=== PATIENT | male | born 1970 | race Two or more races ===

== ENCOUNTER 2024-07-13 09:19 | Outpatient (AMB) | payer BC, SELFPAY ==
[2024-07-13 09:29] VITALS: BP 162/93; PULSE 68; RESP 17; TEMP 36.2; O2SAT 95; BMI 38.9
--- NOTE | 2024-07-13 09:29 | ACNOTE_ITS ---
Vital Signs 07/13/24 09:29 Height 1.63 m Height Method Stated Weight 103.476 kg Weight Measurement Method Standing Scale BMI 38.9 BP 162/93 H Blood Pressure Source Automatic Cuff Blood Pressure Location Left Upper Arm Position Sitting Respiration 17 Pulse 68 Pulse Source Monitor Temp 97.1 F Temp Source Oral Pulse Oximetry (%) 95 Oxygen Delivery Method Room Air Allergies/Meds Allergies & Medications Allergies No Known Allergies Allergy (Verified 07/13/24 09:31) Medication Reconciliation sacubitril 24 mg-valsartan 26 mg tablet (Entresto) 1 tab PO BID 30 days #60 tabs 01/02/23 [Rx Confirmed 07/13/24] aspirin 81 mg tablet,delayed release 81 mg PO QDAY 03/19/23 [History Confirmed 07/13/24] atorvastatin 40 mg tablet 40 mg PO QDAY 03/19/23 [History Confirmed 07/13/24] carvedilol 6.25 mg tablet 6.25 mg PO BID 03/19/23 [History Confirmed 07/13/24] sacubitril 49 mg-valsartan 51 mg tablet (Entresto) 1 tab PO BID 03/19/23 [History Confirmed 07/13/24] methylprednisolone 4 mg tablets in a dose pack See Rx Instructions PO PER PKG DIR #21 tabs 05/07/23 [Rx Confirmed 07/13/24] apixaban 5 mg tablet (Eliquis) 5 mg PO BID 1 month #60 tabs 10/01/23 [Rx Confirmed 07/13/24] hydrochlorothiazide 50 mg tablet 50 mg PO QDAY HTN #30 tabs 10/20/23 [Rx Confirmed 07/13/24] apixaban 5 mg tablet (Eliquis) 5 mg PO BID 30 days #60 tabs 10/22/23 [Rx Confirmed 07/13/24] buspirone 5 mg tablet 5 mg PO TID #90 tabs 10/27/23 [Rx Confirmed 07/13/24] MA Intake Visit Data Collection New Patient or Established: Established Patient (seen at [facility] within 3 years) Seen by Clinical Staff ONLY (RN/LUIS ALFREDO): No Pain Present Currently: No Pain scale:: 0 Pain Scale Used: EncarnacionLeatha/Numerical Optimization Manager Required: No PCP or OBGYN visit in last 3 months: No Hx Now: No Do You Feel Safe at Home: Yes Authorities Contacted: N/A Smoking Status Smoking Status: Former smoker Immunization / Flu Flu Vaccine in the Last 12 Months: No Flu Vaccine Exclusion Criteria: No Exclusion Criteria Past Medical History Past Medical History NEUROLOGIC: Negative Seizures CARDIAC: Negative Congestive Heart Failure RESPIRATORY: Negative Chronic Obstructive Pulmonary Disease (COPD) GASTROINTESTINAL: Positive Hiatal Hernia GENITOURINARY: Negative Renal Disease ENDOCRINE: Negative Diabetes Mellitus Type 1 or Diabetes Mellitus Type 2 OTHER HISTORY: Negative Blood Transfusions or Anesthesia Reactions Family History FAMILY HISTORY: Positive Family Cardiac Disorders Social History SMOKING STATUS: Smoking status: Former smoker LIVES WITH: Lives With: Spouse Patient Portal Questionaires PHQ-9 PHQ-2 Over the last 2 weeks, how often have you been bothered by any of the following problems? 1. Little interest or pleasure in doing things: not at all PHQ-9 8. Moving or speaking so slowly that other people could have noticed? - Or the opposite - being so fidgety or restless that you have been moving around a lot more than usual: not at all Source: Developed by Drs. Winston Orr, Cindy Alcocer, Marc Mcnair and colleagues, with an educational raymon from [employer]. Social History Living Situation History Housing Other:: see note Tobacco History Smoking Status: Former smoker Domestic Abuse History Do You Feel Safe at Home: Yes Review of Systems Report any current symptoms Only answer those that you have currently: Past Medical History Past Medical History Have you ever been diagnosed with any of the following: Neurological Problems Seizures: No Cardiology Problems Congestive Heart Failure: No Respiratory Problems Chronic Obstructive Pulmonary Disease (COPD): No Stomache/Intestinal Problems Hiatal Hernia: Yes Genital/Urinary Problems Renal Disease: No Endocrine Problems Diabetes Mellitus Type 1: No Diabetes Mellitus Type 2: No Other Problems Blood Transfusions: No Anesthesia Reactions: No History of Present Illness HPI Narrative A 54-year-old male patient with past medical hx of CHF, HTN, HLD, Afib on eliquis presented to e office due to high blood pressure, His BP was well controlled with SBPs below 140s, Since yesterday he started to notice that his BP being in 160s and feel sick and lightheadedness associated with nasal congestion epigastric discomfort. On questioning he denied any cough, SOB, orthopnea or PND. denied any N/V/ or diarrhea. Denied any fever. Last visit to his cardiologiest was 7 months. He reported that his daughter has nasal congestions and cough too. Review of Systems Review of Systems Systems Reviewed: All systems reviewed, normal except as documented Objective/Exam Narrative Physical exam: GEN: AOx3, able to speak full sentences HEENT: NC/AC, PERRLA, oral mucosa moist, neck supple CVS: RRR, S1-S2 present, no murmurs appreciated RESP: CTAB GI: soft,non distended, non tender, NBS MSK: able to move all 4 limbs, no lower extremity edema SKIN: scaly patches on his lower extremities with fine scales. ACTUARY CLERK: CN II-XII and Sensation grossly intact. Assessment & Plan Diagnosis / Problem List (1) HFrEF (heart failure with reduced ejection fraction): Status: Acute Plan: Follow up with your university archivist as recommended (2) Nasal congestion: Status: Acute Assessment & Plan: less likely to bacterial infection, Patient denied any SOB or exertional dyspnea Plan: NyQuil, HS as needed (3) HTN (hypertension): Status: Acute Qualifiers: Hypertension type: primary hypertension Qualified Code(s): I10 - Essential (primary) hypertension Assessment & Plan: Patient was noticed to have BP of 162/93, Patient reported that he has been taking Dayquil. He is using meds regularly Plan: - Change diquil to nyqui HS - Continue to monitor your BP daily - If blood Pressure next week still high we may increase his Coreg for a short d uration until he sees his university archivist Additional Assessment Internal Medicine Attending Note: Case discussed with and agree with note and management plan of Resident Physician as per Resident's Note above. Issues of concern for present visit are as follows: Follow-up visit. Patient has symptoms of URI, suspect viral. Used OTC medication likely containing phenylephrine to raise blood pressure. Suspect this is potential cause of blood pressure elevation. We will have him discontinue any [id number] medication containing phenylephrine. If blood pressure remains elevated, will need adjustment in blood pressure medication regimen. Congestive heart failure appears stable at this time. Yeyo Thompson MD Physician Billing Established Patient Established Patient: E/M Level 3-CPT 51196 Office Procedures [facility] Level of Care Nursing/Assessment Patient Status: Established Patient Nursing Assessment/Reassessment: Medication Reconciliation, Update PMH in EMR and Vital Signs Coordination of Care: Complex Care and Chronic Disease 1-5, Consent,records obtained, informed consent, Education Simp Pt/Fam and Staff clarify orders Established Patient Charge Established Patient Point Assignment: 85 Established Patient Point Charge: EP Level 3 (80-115)
== END 2024-07-13 10:19 | disposition home or self-care (01) ==
LOC: HODAHC 09:19
PROVIDERS: PCP Student in an Organized Health Care Education/Training Program; Referring Provider Student in an Organized Health Care Education/Training Program; Supervising Provider Student in an Organized Health Care Education/Training Program; Visit Provider Student in an Organized Health Care Education/Training Program
DX: I11.0 Hypertensive heart disease with heart failure (principal); I50.20 Unspecified systolic (congestive) heart failure; I48.91 Unspecified atrial fibrillation; Z79.01 Long term (current) use of anticoagulants; R09.81 Nasal congestion
CPT/HCPCS: 99213; G0463

== ENCOUNTER 2024-07-23 13:57 | Outpatient (AMB) | payer BC, SELFPAY ==
[2024-07-23 14:06] VITALS: BP 159/90; PULSE 72; RESP 17; TEMP 36.9; O2SAT 94; BMI 40.4
--- NOTE | 2024-07-23 14:06 | PD.RESCLINIC ---
Vital Signs 07/23/24 14:06 Height 1.63 m Height Method Stated Weight 107.558 kg Weight Measurement Method Standing Scale BMI 40.4 BP 159/90 H Blood Pressure Source Automatic Cuff Blood Pressure Location Left Upper Arm Position Sitting Respiration 17 Pulse 72 Pulse Source Monitor Temp 98.5 F Temp Source Temporal Artery Scan Pulse Oximetry (%) 94 L Oxygen Delivery Method Room Air Allergies/Meds Allergies & Medications Allergies No Known Allergies Allergy (Verified 07/23/24 14:07) Medication Reconciliation sacubitril 24 mg-valsartan 26 mg tablet (Entresto) 1 tab PO BID 30 days #60 tabs 01/02/23 [Rx Confirmed 07/23/24] aspirin 81 mg tablet,delayed release 81 mg PO QDAY 03/19/23 [History Confirmed 07/23/24] atorvastatin 40 mg tablet 40 mg PO QDAY 03/19/23 [History Confirmed 07/23/24] sacubitril 49 mg-valsartan 51 mg tablet (Entresto) 1 tab PO BID 03/19/23 [History Confirmed 07/23/24] methylprednisolone 4 mg tablets in a dose pack See Rx Instructions PO PER PKG DIR #21 tabs 05/07/23 [Rx Confirmed 07/23/24] apixaban 5 mg tablet (Eliquis) 5 mg PO BID 1 month #60 tabs 10/01/23 [Rx Confirmed 07/23/24] hydrochlorothiazide 50 mg tablet 50 mg PO QDAY HTN #30 tabs 10/20/23 [Rx Confirmed 07/23/24] apixaban 5 mg tablet (Eliquis) 5 mg PO BID 30 days #60 tabs 10/22/23 [Rx Confirmed 07/23/24] buspirone 5 mg tablet 5 mg PO TID #90 tabs 10/27/23 [Rx Confirmed 07/23/24] carvedilol 12.5 mg tablet (Coreg) 12.5 mg PO Q12H #90 tabs 07/23/24 [Rx] MA Intake Visit Data Collection New Patient or Established: Established Patient (seen at [facility] within 3 years) Seen by Clinical Staff ONLY (RN/MA): No Pain Present Currently: No Pain Scale Used: EncarnacionLeatha/Numerical Diamond Driller Helper Required: No PCP or OBGYN visit in last 3 months: Yes Do You Feel Safe at Home: Yes Authorities Contacted: N/A Smoking Status Smoking Status: Former smoker Immunization / Flu Flu Vaccine in the Last 12 Months: No Flu Vaccine Exclusion Criteria: No Exclusion Criteria Past Medical History Past Medical History NEUROLOGIC: Negative Seizures CARDIAC: Negative Congestive Heart Failure RESPIRATORY: Negative Chronic Obstructive Pulmonary Disease (COPD) GASTROINTESTINAL: Positive Hiatal Hernia GENITOURINARY: Negative Renal Disease ENDOCRINE: Negative Diabetes Mellitus Type 1 or Diabetes Mellitus Type 2 OTHER HISTORY: Negative Blood Transfusions or Anesthesia Reactions Family History FAMILY HISTORY: Positive Family Cardiac Disorders Social History SMOKING STATUS: Smoking status: Former smoker LIVES WITH: Lives With: Spouse Patient Portal Questionaires PHQ-9 PHQ-2 Over the last 2 weeks, how often have you been bothered by any of the following problems? 1. Little interest or pleasure in doing things: not at all PHQ-9 8. Moving or speaking so slowly that other people could have noticed? - Or the opposite - being so fidgety or restless that you have been moving around a lot more than usual: not at all Source: Developed by Drs. Winston Orr, Cindy Alcocer, Marc Mcnair and colleagues, with an educational raymon from [employer]. Social History Living Situation History Housing Other:: see note Tobacco History Smoking Status: Former smoker Domestic Abuse History Do You Feel Safe at Home: Yes Review of Systems Report any current symptoms Only answer those that you have currently: Past Medical History Past Medical History Have you ever been diagnosed with any of the following: Neurological Problems Seizures: No Cardiology Problems Congestive Heart Failure: No Respiratory Problems Chronic Obstructive Pulmonary Disease (COPD): No Stomache/Intestinal Problems Hiatal Hernia: Yes Genital/Urinary Problems Renal Disease: No Endocrine Problems Diabetes Mellitus Type 1: No Diabetes Mellitus Type 2: No Other Problems Blood Transfusions: No Anesthesia Reactions: No History of Present Illness HPI Narrative A 54-year-old male patient with past medical hx of CHF, HTN, HLD, Afib on eliqu[employer] .Presented for lab review. Has no additional complaints today. Denies any chest pain, SOB, and N/V/D. Review of Systems Review of Systems Systems Reviewed: All systems reviewed, normal except as documented Objective/Exam Narrative Physical exam: Constitutional: AOx3, able to speak full sentences HEENT: NC/AT, PERRLA, oral mucosa moist, neck supple CVS: RRR, S1-S2 present, no murmurs RESP: CTAB GI: non distended, non tender to palpation, NBS MSK: full ROM, no peripheral edema, peripheral pulses present Skin: warm and dry, no rashes Neuro: forensic anthropologist II-XII grossly intact. Sensation grossly intact. Assessment & Plan Diagnosis / Problem List (1) HFrEF (heart failure with reduced ejection fraction): Status: Acute Plan: Follow up with your septic tank service technician as recommended continue GDMT as prescribed (2) HTN (hypertension): Status: Acute Qualifiers: Hypertension type: primary hypertension Qualified Code(s): I10 - Essential (primary) hypertension Assessment & Plan: Patient was noticed to have BP of 159/90, Plan: - Continue to monitor your BP daily - increase HCTZ to 50mg QD Office Procedures [facility] Level of Care Nursing/Assessment Patient Status: Established Patient Nursing Assessment/Reassessment: Medication Reconciliation, Update PMH in EMR and Vital Signs Coordination of Care: Complex Care and Chronic Disease 1-5, Consent,records obtained, informed consent, Education Simp Pt/Fam and Staff clarify orders Established Patient Charge Established Patient Point Assignment: 85 Established Patient Point Charge: EP Level 3 (80-115)
== END 2024-07-23 14:31 | disposition home or self-care (01) ==
LOC: HODAHC 13:57
PROVIDERS: PCP Student in an Organized Health Care Education/Training Program; Referring Provider Student in an Organized Health Care Education/Training Program; Supervising Provider Internal Medicine; Visit Provider Student in an Organized Health Care Education/Training Program
DX: I11.0 Hypertensive heart disease with heart failure (principal); I50.20 Unspecified systolic (congestive) heart failure; E78.5 Hyperlipidemia, unspecified; I48.91 Unspecified atrial fibrillation; Z79.01 Long term (current) use of anticoagulants; Z71.2 Person consulting for explanation of examination or test findings
CPT/HCPCS: 99213; G0463

== ENCOUNTER → 2024-08-09 | Outpatient (CLI) | payer BC, SELFPAY ==
[2024-08-09 10:28] LABS: Basophils % (Auto) 1 % (0-2.5); Eosinophils # (Auto) 0.2 Thou/mm3 (0.0-0.5); Eosinophils % (Auto) 3 % (0-10); Hematocrit 43.9 % (41.0-53.0); Hemoglobin 14.7 g/dL (13.5-16.0); Immature Granulocytes % (Auto) 0 % (0-0); Immature Granulocytes Auto 0.02 Thou/mm3 (0.00-0.00); Lymphocytes # (Auto) 1.6 Thou/mm3 (1.0-4.8); Lymphocytes % (Auto) 24 % (10-50); Mean Corpuscular HGB Conc 33.5 g/dl (31.0-37.0); Mean Corpuscular Hemoglobin 28.9 pg (25.0-35.0); Mean Corpuscular Volume 86 fL (80-100); Monocytes # (Auto) 0.4 Thou/mm3 (0.0-0.8); Monocytes % (Auto) 6 % (0-12); Neutrophils # (Auto) 4.5 Thou/mm3 (1.8-7.7); Neutrophils % (Auto) 66 % (37-80); Nucleated Red Blood Cell % 0 /100 WBC (0); Platelet Count 233 Thou/mm3 (140-440); Red Blood Count 5.09 Miln/mm3 (4.50-5.90); White Blood Count 6.8 Thou/mm3 (3.8-10.6)
[2024-08-09 10:59] LABS: Vitamin D 25 Hydroxy Total 31.6 ng/mL (7.3-40.2)
[2024-08-09 11:00] LABS: Alanine Aminotransferase 23 U/L (10-49); Albumin, Serum 4.2 gm/dL (3.5-5.0); Albumin/Globulin Ratio 1.8 (1.2-2.2); Alkaline Phosphatase 109 U/L (46-116); Anion Gap 5 (7-16); Aspartate Amino Transferase 12 U/L (0-34); BUN/Creatinine Ratio 18 Ratio (12-20); Bilirubin,Total 0.8 mg/dL (0.3-1.2); Blood Urea Nitrogen 14 mg/dL (9-23); Calcium 9.3 mg/dL (8.3-10.6); Calcium (Corrected) 9.3 mg/dL (8.5-10.1); Carbon Dioxide 31.1 mMol/L (20.0-31.0); Cardiac Risk Estimate 3.8 RATIO (4.0-6.7); Chloride 105 mMol/L (98-107); Cholesterol 125 mg/dL (132-200); Creatinine (Component) 0.8 mg/dL (0.6-1.3); Globulin 2.4 gm/dL (2.3-3.5); Glucose 176 mg/dL (74-106); HDL Cholesterol 33 mg/dL (40-60); LDL Cholesterol,Calculated 72 mg/dL (0-130); Magnesium 1.7 mg/dL (1.6-2.6); Osmolality,Calculated 285 (275-295); Phosphorous 3.1 mg/dL (2.4-5.1); Potassium 4.2 mMol/L (3.4-5.1); Sodium 141 mMol/L (136-145); Total Protein 6.6 gm/dL (5.7-8.2); Triglycerides 100 mg/dL (30-150); eGFR > 60 See Note
[2024-08-09 11:26] LABS: Ferritin 183 ng/mL (10.5-307.3); Iron 77 mcg/dL (65-175); Total Iron Binding Capacity 304 mcg/dL (250-425)
[2024-08-09 11:56] LABS: Glucose Estimated Average 148 mg/dL (80-131); Hemoglobin A1C 6.8 % Hgb (4.8-6.0)
== END | disposition home or self-care (01) ==
LOC: COPL 09:02
PROVIDERS: PCP Internal Medicine; Referring Provider Student in an Organized Health Care Education/Training Program; Visit Provider Student in an Organized Health Care Education/Training Program
DX: I50.9 Heart failure, unspecified (principal)
CPT/HCPCS: 36415; 80053; 80061; 82306; 82728; 83036; 83540; 83550; 83735; 84100; 85025

== ENCOUNTER 2024-11-05 13:19 | Outpatient (AMB) | payer BC, SELFPAY ==
[2024-11-05 13:30] VITALS: BP 149/89; PULSE 67; RESP 17; TEMP 36.2; O2SAT 94; BMI 39.6
--- NOTE | 2024-11-05 13:30 | ACNOTE_ITS ---
Vital Signs 11/05/24 13:30 Height 1.63 m Height Method Stated Weight 104.837 kg Weight Measurement Method Standing Scale BMI 39.6 BP 149/89 H Blood Pressure Source Automatic Cuff Blood Pressure Location Right Upper Arm Position Sitting Respiration 17 Pulse 67 Pulse Source Monitor Temp 97.1 F Temp Source Temporal Artery Scan Pulse Oximetry (%) 94 L Oxygen Delivery Method Room Air Allergies/Meds Allergies & Medications Allergies No Known Allergies Allergy (Verified 11/05/24 13:31) Medication Reconciliation aspirin 81 mg tablet,delayed release 81 mg PO QDAY 03/19/23 [History Confirmed 11/05/24] atorvastatin 40 mg tablet 40 mg PO QDAY 03/19/23 [History Confirmed 11/05/24] methylprednisolone 4 mg tablets in a dose pack See Rx Instructions PO PER PKG DIR #21 tabs 05/07/23 [Rx Confirmed 11/05/24] apixaban 5 mg tablet (Eliquis) 5 mg PO BID 1 month #60 tabs 10/01/23 [Rx Confirmed 11/05/24] hydrochlorothiazide 50 mg tablet 50 mg PO QDAY HTN #30 tabs 10/20/23 [Rx Confirmed 11/05/24] apixaban 5 mg tablet (Eliquis) 5 mg PO BID 30 days #60 tabs 10/22/23 [Rx Confirmed 11/05/24] buspirone 5 mg tablet 5 mg PO TID #90 tabs 10/27/23 [Rx Confirmed 11/05/24] carvedilol 12.5 mg tablet (Coreg) 12.5 mg PO Q12H #90 tabs 07/23/24 [Rx Confirmed 11/05/24] sacubitril 49 mg-valsartan 51 mg tablet 1 tab PO BID heart failure #60 tabs 09/16/24 [Rx Confirmed 11/05/24] oxymetazoline 0.05 % nasal mist (Children's Afrin No Drip (oxymetazoline)) 2 spray intranasal Q12H PRN nasal congestion 3 days #15 mL 11/05/24 [Rx] MA Intake Visit Data Collection New Patient or Established: Established Patient (seen at [facility] within 3 years) Seen by Clinical Staff ONLY (RN/MA): No Pain Present Currently: No Pain scale:: 0 Pain Scale Used: Encarnacion-Taylor/Numerical Blanket Maker Required: No PCP or OBGYN visit in last 3 months: Yes Date of Last PCP or OBGYN visit: 07/23/24 Hx Now: No Do You Feel Safe at Home: Yes Authorities Contacted: N/A Smoking Status Smoking Status: Former smoker Immunization / Flu Flu Vaccine in the Last 12 Months: Yes Flu Vaccine Exclusion Criteria: Already Received Past Medical History Past Medical History NEUROLOGIC: Negative Seizures CARDIAC: Negative Congestive Heart Failure RESPIRATORY: Negative Chronic Obstructive Pulmonary Disease (COPD) GASTROINTESTINAL: Positive Hiatal Hernia GENITOURINARY: Negative Renal Disease ENDOCRINE: Negative Diabetes Mellitus Type 1 or Diabetes Mellitus Type 2 OTHER HISTORY: Negative Blood Transfusions or Anesthesia Reactions Family History FAMILY HISTORY: Positive Family Cardiac Disorders Social History SMOKING STATUS: Smoking status: Former smoker LIVES WITH: Lives With: Spouse Patient Portal Questionaires PHQ-9 PHQ-2 Over the last 2 weeks, how often have you been bothered by any of the following problems? 1. Little interest or pleasure in doing things: not at all 2. Feeling down, depressed, or hopeless: not at all Total score: 0 PHQ-9 3. Trouble falling or staying asleep, or sleeping too much: Not at all 4. Feeling tired or having little energy: Not at all 5. Poor appetite or overeating: Not at all 6. Feeling bad about yourself - or that you are a failure or have let yourself or your family down: Not at all 7. Trouble concentrating on things, such as reading the newspaper or watching television: Not at all 8. Moving or speaking so slowly that other people could have noticed? - Or the opposite - being so fidgety or restless that you have been moving around a lot more than usual: not at all 9. Thoughts that you would be better off or of hurting yourself in some way: Not at all Total score: 0 If you checked off any problems, how difficult have these problems made it for you to do your work, take care of things at home, or get along with other people?: not difficult at all Source: Developed by Drs. Winston Orr, Cindy Alcocer, Marc Mcnair and colleagues, with an educational raymon from [employer]. Depression screen completed yes Social History Living Situation History Housing Other:: see note Tobacco History Smoking Status: Former smoker Domestic Abuse History Do You Feel Safe at Home: Yes Review of Systems Report any current symptoms Only answer those that you have currently: Past Medical History Past Medical History Have you ever been diagnosed with any of the following: Neurological Problems Seizures: No Cardiology Problems Congestive Heart Failure: No Respiratory Problems Chronic Obstructive Pulmonary Disease (COPD): No Stomache/Intestinal Problems Hiatal Hernia: Yes Genital/Urinary Problems Renal Disease: No Endocrine Problems Diabetes Mellitus Type 1: No Diabetes Mellitus Type 2: No Other Problems Blood Transfusions: No Anesthesia Reactions: No History of Present Illness HPI Narrative Patient is a 52-year-old male with past medical history of Afib with RVR, CHF and hypertension who was hospitalized at [facility] (formerly [facility] in December for CHF exacerbation. In hospital patient was hypoxic with A-fib with RVR which was rate controlled with metoprolol and his symptoms greatly improved with diuretics. 12/28/2022: ECHO showed an ejection fraction of 20 to 25% ; 01/01/2023: Cardiac cath showed no active vessel disease. He follows up with Dr Cramer at the Cardiology clinic. Patient is established for primary care at the [facility] clinic since 02/13/23. 06/18/2023: Patient presented with a f/u appointment. 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 We will continue to monitor for resolution of symptoms. Patient's BP was trending high since completion of the steroid course, SBP 170- >150s, previously well controlled. Patient advised to continue monitoring daily and inform by call in 10-14 days. We will change medications as needed. Patient to do blood work 1 week prior (Jul 09, 2023) to next appointment on Jul 16. 07/23/2023: Patient seen for f/u visit. 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 BP is well controlled. Patient had discontinued Eliquis on his own, despite refill given on last visit. Repeat order placed for Eliquis to be continued until cardiology f.u in 09/2023. Patient's medications repleted. 08/03/2023 : patient seen for a f/u appt in the clinic. Eliquis was refilled. He continues to have right facial weakness. We previously treated with solu-medrol less than 3 months ago, with appropriate recovery. However given the frequent relapse, we will repeat a course of steroid with acyclovir x10 days, patient in agreement. HFrEF as noted on ECHO in 12/29 : LVEF 30-35%, he is scheduled for a repeat ECHO next month wit his roentgenologist, no overt signs of fluid overload. We will continue all home meds as before, and add Jardiance 10mg qAM to achieve guideline based goals. 11/19/2023: F/U for RT facial leal's palsy. Patient was previously given a Rx for solumedrol x 1 week and Acyclovir x10 d on his last visit. Jardiance 10mg qAM added to achieve guideline based goals - was NOT approved by his insurance so we will hold off for now. He is doing much better but continues to have a slight RT twitch and RT eyelid drooping, however there is no limitation in activity, blurring of vision or present complaints. Patient is scheduled for a F/u in 6-8 months from now with annual labs. 07/13/2024 and 07/23/2024: Seen by other providers for common cold. Stable. 11/05/2034: Presented to [facility] for acute RT sided nose bleeds. Started experiencing recurrent epistaxis over the last week. He is on Eliquis 5mg BID as per Cardiology recommendations. He is advised to reduce Eliquis to 2.5 BID for now and follow up with Cardiology. Patient has otherwise been in good health. He will benefit from holding Eliquis for a few days in the setting of acute bleed to allow clot stabilization. Will follow up Cardiology recommendations re: AC. Follow up in December 2024. Advised to keep tampons as home to achieve hemostasis and go to the ER if worsening bleeding. Review of Systems Review of Systems Narrative Review of Systems: GENERAL: Denies fevers/chills, diaphoresis. HEENT: Bloody nasal discharge. Denies headache or visual/hearing changes. NEURO: Denies unusual weakness or difficulty speaking. CARDIO: Denies chest pain, palpitations. PULM: Denies SOB, cough, wheezing. GI: Denies abdominal pain, no N/V, no C/D. Reports having BMs URO: Denies burning/itching/pain/urinary changes. MSK/EXT/SKIN: Denies skeletal/muscle pain, changes in upper or lower extremities, itchiness, superficial skin chnages. PSYCH: Cooperative, pleasant mood & affect. The rest of the review of systems is otherwise negative. Objective/Exam Narrative Physical exam: Constitutional Alert, oriented x3 and comfortable HEENT Vision grossly intact. Patent nares, dried blood around RT nasal orifice, layo blood and small clots in the RT nasal cavity. Trachea midline. Respiratory Chest normal on inspection and clear to auscultation bilaterally. Cardiovascular S1 and S2 audible, RRR. No murmurs or carotid bruit. No gross JVD. Abdominal Soft and BS + ; non tender to palpation in all quadrants. Genitourinary No bladder tenderness, no flank pain. Normal to palpation. Musculoskeletal Extremities tone within normal limits. No LE edema. Neurological CN II - XII grossly intact. Extremity motor and sensation grossly intact. Skin Warm, dry and intact. No apparent lesions. Psychiatric Patient has a good affect, is cooperative. Assessment & Plan Diagnosis / Problem List (1) Epistaxis: Status: Acute Assessment & Plan: - He is experiencing recurrent epistaxis over the last week. - He is on Eliquis 5mg BID as per Cardiology recommendations. Plan: - He is advised to reduce Eliquis to 2.5 BID for now - follow up Cardiology recommendations re: AC. - Advised to keep tampons as home to achieve hemostasis - Oxymetazoline nasal mist for vasoconsctriction, if bleeding doesnt stop with physical constriction - Recommended to go to the ER if worsening bleeding. Plan Follow up with Cardiology re: DOAC hold for a few days Follow up with [facility] in December 2024 Office Procedures [facility] Level of Care Nursing/Assessment Patient Status: Established Patient Nursing Assessment/Reassessment: Medication Reconciliation, Update PMH in EMR and Vital Signs Coordination of Care: Complex Care and Chronic Disease 1-5, Consent,records obtained, informed consent, Education Simp Pt/Fam and Staff clarify orders Established Patient Charge Established Patient Point Assignment: 85 Established Patient Point Charge: Level 3 (80-115)
== END 2024-11-05 14:35 | disposition home or self-care (01) ==
LOC: HODAHC 13:19
PROVIDERS: PCP Student in an Organized Health Care Education/Training Program; Referring Provider Student in an Organized Health Care Education/Training Program; Supervising Provider Internal Medicine; Visit Provider Student in an Organized Health Care Education/Training Program
DX: R04.0 Epistaxis (principal); Z79.01 Long term (current) use of anticoagulants
CPT/HCPCS: 99213; G0463

== ENCOUNTER 2025-05-04 13:16 | Outpatient (AMB) | payer BC, SELFPAY ==
[2025-05-04 13:30] VITALS: BP 150/98; PULSE 66; RESP 18; TEMP 35.9; O2SAT 96; BMI 35.6
--- NOTE | 2025-05-04 13:30 | PD.RESCLINIC ---
Vital Signs 05/04/25 13:30 Height 1.63 m Height Method Stated Weight 94.517 kg Weight Measurement Method Standing Scale BMI 35.6 BP 150/98 H Blood Pressure Source Automatic Cuff Blood Pressure Location Right Upper Arm Position Sitting Respiration 18 Pulse 66 Pulse Source Monitor Temp 96.7 F L Temp Source Temporal Artery Scan Pulse Oximetry (%) 96 Oxygen Delivery Method Room Air Allergies/Meds Allergies & Medications Allergies No Known Allergies Allergy (Verified 05/04/25 13:31) Medication Reconciliation aspirin 81 mg tablet,delayed release 81 mg PO QDAY 03/19/23 [History Confirmed 05/04/25] atorvastatin 40 mg tablet 40 mg PO QDAY 03/19/23 [History Confirmed 05/04/25] methylprednisolone 4 mg tablets in a dose pack See Rx Instructions PO PER PKG DIR #21 tabs 05/07/23 [Rx Confirmed 05/04/25] apixaban 5 mg tablet (Eliquis) 5 mg PO BID 1 month #60 tabs 10/01/23 [Rx Confirmed 05/04/25] hydrochlorothiazide 50 mg tablet 50 mg PO QDAY HTN #30 tabs 10/20/23 [Rx Confirmed 05/04/25] apixaban 5 mg tablet (Eliquis) 5 mg PO BID 30 days #60 tabs 10/22/23 [Rx Confirmed 05/04/25] carvedilol 12.5 mg tablet (Coreg) 12.5 mg PO Q12H #90 tabs 07/23/24 [Rx Confirmed 05/04/25] sacubitril 49 mg-valsartan 51 mg tablet 1 tab PO BID heart failure #60 tabs 09/16/24 [Rx Confirmed 05/04/25] buspirone 5 mg tablet 5 mg PO TID #90 tabs 12/06/24 [Rx Confirmed 05/04/25] spironolactone 25 mg tablet 25 mg PO QDAY #30 tabs 05/04/25 [Rx] tirzepatide 2.5 mg/0.5 mL subcutaneous pen injector (Mounjaro) 2.5 mg (0.5 mL) subcut QWEEK 4 weeks #2 mL 05/04/25 [Rx] tirzepatide 5 mg/0.5 mL subcutaneous pen injector (Mounjaro) 5 mg (0.5 mL) subcut QWEEK 4 weeks #2 mL 05/04/25 [Rx] MA Intake Visit Data Collection New Patient or Established: Established Patient (seen at [facility] within 3 years) Seen by Clinical Staff ONLY (RN/MA): No Pain Present Currently: No Pain scale:: 0 Pain Scale Used: Encarnacion-Taylor/Numerical Harness And 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 Inspector Required: No PCP or OBGYN visit in last 3 months: Yes Hx Now: Yes Do You Feel Safe at Home: Yes Authorities Contacted: N/A Smoking Status Smoking Status: Former smoker Immunization / Flu Flu Vaccine in the Last 12 Months: No Flu Vaccine Exclusion Criteria: Already Received Past Medical History Past Medical History NEUROLOGIC: Negative Seizures CARDIAC: Negative Congestive Heart Failure RESPIRATORY: Negative Chronic Obstructive Pulmonary Disease (COPD) GASTROINTESTINAL: Positive Hiatal Hernia GENITOURINARY: Negative Renal Disease ENDOCRINE: Negative Diabetes Mellitus Type 1 or Diabetes Mellitus Type 2 OTHER HISTORY: Negative Blood Transfusions or Anesthesia Reactions Family History FAMILY HISTORY: Positive Family Cardiac Disorders Social History SMOKING STATUS: Smoking status: Former smoker LIVES WITH: Lives With: Spouse Patient Portal Questionaires PHQ-9 PHQ-2 Over the last 2 weeks, how often have you been bothered by any of the following problems? 1. Little interest or pleasure in doing things: not at all PHQ-9 8. Moving or speaking so slowly that other people could have noticed? - Or the opposite - being so fidgety or restless that you have been moving around a lot more than usual: not at all Source: Developed by Drs. Winston Orr, Cindy Alcocer, Marc Mcnair and colleagues, with an educational raymon from [employer]. Social History Living Situation History Housing Other:: see note Tobacco History Smoking Status: Former smoker Domestic Abuse History Do You Feel Safe at Home: Yes Review of Systems Report any current symptoms Only answer those that you have currently: Past Medical History Past Medical History Have you ever been diagnosed with any of the following: Neurological Problems Seizures: No Cardiology Problems Congestive Heart Failure: No Respiratory Problems Chronic Obstructive Pulmonary Disease (COPD): No Stomache/Intestinal Problems Hiatal Hernia: Yes Genital/Urinary Problems Renal Disease: No Endocrine Problems Diabetes Mellitus Type 1: No Diabetes Mellitus Type 2: No Other Problems Blood Transfusions: No Anesthesia Reactions: No History of Present Illness HPI Narrative Patient is a 52-year-old male with past medical history of Afib with RVR, CHF and hypertension who was hospitalized at [facility] (formerly [facility]3] in December for CHF exacerbation. In hospital patient was hypoxic with A-fib with RVR which was rate controlled with metoprolol and his symptoms greatly improved with diuretics. 12/28/2022: ECHO showed an ejection fraction of 20 to 25% ; 01/01/2023: Cardiac cath showed no active vessel disease. He follows up with Dr Cramer at the Cardiology clinic. Patient is established for primary care at the [facility] clinic since 02/13/23. 06/18/2023: Patient presented with a f/u appointment. 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 We will continue to monitor for resolution of symptoms. Patient's BP was trending high since completion of the steroid course, SBP 170->150s, previously well controlled. Patient advised to continue monitoring daily and inform by call in 10-14 days. We will change medications as needed. Patient to do blood work 1 week prior (Jul 09, 2023) to next appointment on Jul 16. 07/23/2023: Patient seen for f/u visit. 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 BP is well controlled. Patient had discontinued Eliquis on his own, despite refill given on last visit. Repeat order placed for Eliquis to be continued until cardiology f.u in 09/2023. Patient's medications repleted. 08/03/2023 : patient seen for a f/u appt in the clinic. Eliquis was refilled. He continues to have right facial weakness. We previously treated with solu-medrol less than 3 months ago, with appropriate recovery. However given the frequent relapse, we will repeat a course of steroid with acyclovir x10 days, patient in agreement. 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 We will continue all home meds as before, and add Jardiance 10mg qAM to achieve guideline based goals. 11/19/2023: F/U for RT facial leal's palsy. Patient was previously given a Rx for solumedrol x 1 week and Acyclovir x10 d on his last visit. Jardiance 10mg qAM added to achieve guideline based goals - was NOT approved by his insurance so we will hold off for now. He is doing much better but continues to have a slight RT twitch and RT eyelid drooping, however there is no limitation in activity, blurring of vision or present complaints. Patient is scheduled for a F/u in 6-8 months from now with annual labs. 07/13/2024 and 07/23/2024: Seen by other providers for common cold. Stable. 11/05/2034: Presented to [facility] for acute RT sided nose bleeds. Started experiencing recurrent epistaxis over the last week. He is on Eliquis 5mg BID as per Cardiology recommendations. He is advised to reduce Eliquis to 2.5 BID for now and follow up with Cardiology. Patient has otherwise been in good health. He will benefit from holding Eliquis for a few days in the setting of acute bleed to allow clot stabilization. Will follow up Cardiology recommendations re: AC. Follow up in December 2024. Advised to keep tampons as home to achieve hemostasis and go to the ER if worsening bleeding. 05/04/2025: Seen at [facility] after appintment with Cardio. Patient continues to have high BP 150/90s, BMI 35 and last A1c 6.8% in August 2024. Labs were ordered on last visit in October 2024, however no slips were handed to the patient. Will re-order CBC, CMp, Lipid Panel, A1c and TSH, free T4 - follow up phone appointment in 2 weeks with providers at [facility]. Will add Mounjaro starting at 0.25 x4 weeks and 0.5 xnext 4 weeks, anticipate improvement in Bp and A1c with GLP1s. Also adding spironolactone 25mg qD for GDMT optimization. Patient instructed to keep BP log to further evaluate. In person appt in 2 months. Review of Systems Review of Systems Narrative Review of Systems: GENERAL: Denies fevers/chills, diaphoresis. HEENT: Denies headache or visual/hearing changes. Denies nasal discharge. NEURO: Denies unusual weakness or difficulty speaking. CARDIO: Denies chest pain, palpitations. PULM: Denies SOB, cough, wheezing. GI: Denies abdominal pain, no N/V, no C/D. Reports having BMs URO: Denies burning/itching/pain/urinary changes. MSK/EXT/SKIN: Denies skeletal/muscle pain, changes in upper or lower extremities, itchiness, superficial skin chnages. PSYCH: Cooperative, pleasant mood & affect. The rest of the review of systems is otherwise negative. Objective/Exam Narrative Physical exam: Constitutional Alert, oriented x3 and comfortable HEENT Vision grossly intact, PERRLA. Patent nares. Trachea midline. Respiratory Chest normal on inspection and clear to auscultation bilaterally. Cardiovascular S1 and S2 audible, RRR. No murmurs or carotid bruit. No gross JVD. Abdominal Soft and BS + ; non tender to palpation in all quadrants. Genitourinary No bladder tenderness, no flank pain. Normal to palpation. Musculoskeletal Extremities tone within normal limits. No LE edema. Neurological CN II - XII grossly intact. Extremity motor and sensation grossly intact. Skin Warm, dry and intact. No apparent lesions. Psychiatric Patient has a good affect, is cooperative. Assessment & Plan Diagnosis / Problem List (1) Diabetes mellitus: Status: Acute Qualifiers: Diabetes mellitus complication status: with hyperglycemia Diabetes mellitus halfway insulin use: without halfway use Diabetes mellitus type: type 2 Qualified Code(s): E11.65 - Type 2 diabetes mellitus with hyperglycemia Assessment & Plan: Last A1c = 6.8% in August 2024 Not on anti oral hypoglycemic agents Previously ordered SGLT2i which was not approved by insurance Plan: Mounjaro starting at 0.25 x4 weeks and 0.5 xnext 4 weeks Ordered A1c and Lipid panel Phone appt in 2 weeks (2) Obesity (BMI 30-39.9): Status: Acute Assessment & Plan: BMI 35.6 Unable to lose weight with dietary changes and regular exercise Has HFrEF and A1c 6.8 Plan: Started on Mounjaro : 0.25 x 4 weeks and 0.5 x next 4 weeks, anticipate improvement in Bp and A1c with GLP1s Ordered Lipid panel, CMP, Thyroid tests Phone appt in 2 weeks (3) Afib: Status: Acute Qualifiers: Atrial fibrillation type: paroxysmal Qualified Code(s): I48.0 - Paroxysmal atrial fibrillation Assessment & Plan: Well controlled, on Eliquis and Coreg Continues to f/u with Cardiology Plan: Ordered CBC, CMP, Mg, Lipid panel and thyroid tests No changes in medications Phone appt in 2 weeks (4) HFrEF (heart failure with reduced ejection fraction): Status: Acute Assessment & Plan: LVEF improved on GDMT with Sacub-Valsartan, Coreg and Afib control BP continues to remain high Plan: Ordered Mounjaro 0.25 and 0.5 , over 2 months Ordered Spirinolactone 25mg qD Follow up in 2 months (5) HTN (hypertension): Status: Acute Qualifiers: Hypertension type: primary hypertension Qualified Code(s): I10 - Essential (primary) hypertension Assessment & Plan: BP worsening from previously 120-130s -> 150/90s BMI 35.6 Plan: Continue Coreg, HCTZ and Entresto Added Spironolactone 25mg qD for GDMT optimization Plan Labs ordered: CBC, CMP, Lipid Panel, A1c and TSH, free T4 Phone appt in 2 weeks In person appt in 2 months Orders: Orders Ambulatory Hemoglobin A1C 2 Weeks E11.9 - Type 2 diabetes mellitus without complications Thyroid Stimulating Hormone 2 Weeks I48.91 - Unspecified atrial fibrillation Free T4 (Free Thyroxine) 2 Weeks I48.91 - Unspecified atrial fibrillation CBC 2 Weeks I10 - Essential (primary) hypertension Comprehensive Metabolic Panel 2 Weeks I50.20 - Unspecified systolic (congestive) heart failure, R73.9 - Hyperglycemia, unspecified Lipid Panel 2 Weeks I48.91 - Unspecified atrial fibrillation Magnesium 2 Weeks I48.91 - Unspecified atrial fibrillation Physician Billing Established Patient Established Patient: E/M Level 2-CPT 53047 Office Procedures [facility] Level of Care Nursing/Assessment Patient Status: Established Patient Nursing Assessment/Reassessment: Medication Reconciliation, Update PMH in EMR and Vital Signs Coordination of Care: Complex Care and Chronic Disease 1-5, Complex Care/Chronic Disease 5 or more, Consent,records obtained, informed consent, Lab and Imaging orders, Results/Orders obtained and Staff clarify orders Established Patient Charge Established Patient Point Assignment: 125 Established Patient Point Charge: EP Level 4 (120-155)
== END 2025-05-04 13:55 | disposition home or self-care (01) ==
LOC: HODAHC 13:16
PROVIDERS: Family Provider Student in an Organized Health Care Education/Training Program; PCP Student in an Organized Health Care Education/Training Program; Referring Provider Student in an Organized Health Care Education/Training Program; Supervising Provider Internal Medicine; Visit Provider Student in an Organized Health Care Education/Training Program
DX: E11.65 Type 2 diabetes mellitus with hyperglycemia (principal); E66.9 Obesity, unspecified; Z68.35 Body mass index [BMI] 35.0-35.9, adult; I48.0 Paroxysmal atrial fibrillation; Z79.01 Long term (current) use of anticoagulants; I11.0 Hypertensive heart disease with heart failure; I50.20 Unspecified systolic (congestive) heart failure
CPT/HCPCS: 99214; G0463

== ENCOUNTER → 2025-05-09 | Outpatient (CLI) | payer BC, SELFPAY ==
[2025-05-09 09:59] LABS: Basophils # (Auto) 0.1 Thou/mm3 (0.0-0.2); Basophils % (Auto) 1 % (0-2.5); Eosinophils # (Auto) 0.2 Thou/mm3 (0.0-0.5); Eosinophils % (Auto) 2 % (0-10); Hematocrit 47.8 % (41.0-53.0); Hemoglobin 15.7 g/dL (13.5-16.0); Immature Granulocytes Auto 0.03 Thou/mm3 (0.00-0.00); Lymphocytes # (Auto) 1.6 Thou/mm3 (1.0-4.8); Lymphocytes % (Auto) 18 % (10-50); Mean Corpuscular HGB Conc 32.8 g/dl (31.0-37.0); Mean Corpuscular Hemoglobin 28.0 pg (25.0-35.0); Mean Corpuscular Volume 85 fL (80-100); Monocytes # (Auto) 0.5 Thou/mm3 (0.0-0.8); Monocytes % (Auto) 6 % (0-12); Neutrophils # (Auto) 6.4 Thou/mm3 (1.8-7.7); Neutrophils % (Auto) 73 % (37-80); Nucleated Red Blood Cell # 0.00 Thou/mm3 (0.00-0.00); Nucleated Red Blood Cell % 0 /100 WBC (0); Platelet Count 286 Thou/mm3 (140-440); RDW Standard Deviation 42.4 fL (35.1-43.9); Red Blood Count 5.61 Miln/mm3 (4.50-5.90); White Blood Count 8.7 Thou/mm3 (3.8-10.6)
[2025-05-09 10:28] LABS: Alanine Aminotransferase 39 U/L (10-49); Albumin, Serum 5.0 gm/dL (3.5-5.0); Albumin/Globulin Ratio 1.8 (1.2-2.2); Alkaline Phosphatase 147 U/L (46-116); Anion Gap 8 (7-16); Aspartate Amino Transferase 20 U/L (0-34); BUN/Creatinine Ratio 13 Ratio (12-20); Bilirubin,Total 1.0 mg/dL (0.3-1.2); Blood Urea Nitrogen 13 mg/dL (9-23); Calcium 9.7 mg/dL (8.3-10.6); Calcium (Corrected) 9.7 mg/dL (8.5-10.1); Carbon Dioxide 28.7 mMol/L (20.0-31.0); Cardiac Risk Estimate 4.0 RATIO (4.0-6.7); Chloride 100 mMol/L (98-107); Cholesterol 136 mg/dL (132-200); Creatinine (Component) 1.0 mg/dL (0.6-1.3); Free T4 (Free Thyroxine) 1.37 ng/dL (0.89-1.76); Globulin 2.8 gm/dL (2.3-3.5); Glucose 297 mg/dL (74-106); HDL Cholesterol 34 mg/dL (40-60); LDL Cholesterol,Calculated 86 mg/dL (0-130); Magnesium 2.2 mg/dL (1.6-2.6); Osmolality,Calculated 284 (275-295); Potassium 4.4 mMol/L (3.4-5.1); Sodium 137 mMol/L (136-145); Thyroid Stimulating Hormone 1.59 uIU/mL (0.55-4.78); Total Protein 7.8 gm/dL (5.7-8.2); Triglycerides 80 mg/dL (30-150); eGFR > 60 See Note
[2025-05-09 11:06] LABS: Glucose Estimated Average 326 mg/dL (80-131); Hemoglobin A1C 13.0 % Hgb (4.8-6.0)
== END | disposition home or self-care (01) ==
PROVIDERS: PCP Student in an Organized Health Care Education/Training Program; Referring Provider Student in an Organized Health Care Education/Training Program; Visit Provider Student in an Organized Health Care Education/Training Program
DX: I48.91 Unspecified atrial fibrillation (principal); E11.9 Type 2 diabetes mellitus without complications; I11.0 Hypertensive heart disease with heart failure; I50.20 Unspecified systolic (congestive) heart failure
CPT/HCPCS: 36415; 80053; 80061; 83036; 83735; 84439; 84443; 85025

== ENCOUNTER 2025-05-18 13:47 | Outpatient (AMB) | payer BC, SELFPAY ==
--- NOTE | 2025-05-18 13:52 | PD.RESCLINIC ---
Allergies/Meds Allergies & Medications Allergies No Known Allergies Allergy (Verified 05/18/25 13:52) Medication Reconciliation aspirin 81 mg tablet,delayed release 81 mg PO QDAY 03/19/23 [History Confirmed 05/18/25] atorvastatin 40 mg tablet 40 mg PO QDAY 03/19/23 [History Confirmed 05/18/25] methylprednisolone 4 mg tablets in a dose pack See Rx Instructions PO PER PKG DIR #21 tabs 05/07/23 [Rx Confirmed 05/18/25] apixaban 5 mg tablet (Eliquis) 5 mg PO BID 1 month #60 tabs 10/01/23 [Rx Confirmed 05/18/25] hydrochlorothiazide 50 mg tablet 50 mg PO QDAY HTN #30 tabs 10/20/23 [Rx Confirmed 05/18/25] apixaban 5 mg tablet (Eliquis) 5 mg PO BID 30 days #60 tabs 10/22/23 [Rx Confirmed 05/18/25] carvedilol 12.5 mg tablet (Coreg) 12.5 mg PO Q12H #90 tabs 07/23/24 [Rx Confirmed 05/18/25] sacubitril 49 mg-valsartan 51 mg tablet 1 tab PO BID heart failure #60 tabs 09/16/24 [Rx Confirmed 05/18/25] buspirone 5 mg tablet 5 mg PO TID #90 tabs 12/06/24 [Rx Confirmed 05/18/25] spironolactone 25 mg tablet 25 mg PO QDAY #30 tabs 05/04/25 [Rx Confirmed 05/18/25] tirzepatide 2.5 mg/0.5 mL subcutaneous pen injector (Mounjaro) 2.5 mg (0.5 mL) subcut QWEEK 4 weeks #2 mL 05/04/25 [Rx Confirmed 05/18/25] tirzepatide 5 mg/0.5 mL subcutaneous pen injector (Mounjaro) 5 mg (0.5 mL) subcut QWEEK 4 weeks #2 mL 05/04/25 [Rx Confirmed 05/18/25] blood-glucose sensor (FreeStyle Rios 3 Sensor device) #2 ea 05/18/25 [Rx] empagliflozin 25 mg tablet (Jardiance) 25 mg PO QAM diabetes and heart function 30 days #30 tabs 05/18/25 [Rx] metformin 500 mg tablet 500 mg PO BID 30 days #60 tabs 05/18/25 [Rx] tirzepatide 7.5 mg/0.5 mL subcutaneous pen injector (Mounjaro) 7.5 mg (0.5 mL) subcut QWEEK diabetes 4 weeks #2 mL 05/18/25 [Rx] LUIS ALFREDO Intake Visit Data Collection New Patient or Established: Established Patient (seen at [facility] within 3 years) Seen by Clinical Staff ONLY (RN/MA): No Reason for Visit:: Televisit follow up of lab results Pain Present Currently: No Pain scale:: 0 Pain Scale Used: Encarnacion-Taylor/Numerical Wound Care Physician Required: No PCP or OBGYN visit in last 3 months: Yes Do You Feel Safe at Home: Yes Authorities Contacted: N/A Smoking Status Smoking Status: Former smoker For Televisit only Telemed Video/Phone Visit: Yes Verbal consent obtained for Telemed visit?: Yes Telemed Video/Phone visit w/Clinical Staff: 21-30 min Immunization / Flu Flu Vaccine in the Last 12 Months: No Flu Vaccine Exclusion Criteria: Already Received Past Medical History Past Medical History NEUROLOGIC: Negative Seizures CARDIAC: Negative Congestive Heart Failure RESPIRATORY: Negative Chronic Obstructive Pulmonary Disease (COPD) GASTROINTESTINAL: Positive Hiatal Hernia GENITOURINARY: Negative Renal Disease ENDOCRINE: Negative Diabetes Mellitus Type 1 or Diabetes Mellitus Type 2 OTHER HISTORY: Negative Blood Transfusions or Anesthesia Reactions Family History FAMILY HISTORY: Positive Family Cardiac Disorders Social History SMOKING STATUS: Smoking status: Former smoker LIVES WITH: Lives With: Spouse Patient Portal Questionaires PHQ-9 PHQ-2 Over the last 2 weeks, how often have you been bothered by any of the following problems? 1. Little interest or pleasure in doing things: not at all 2. Feeling down, depressed, or hopeless: not at all Total score: 0 PHQ-9 8. Moving or speaking so slowly that other people could have noticed? - Or the opposite - being so fidgety or restless that you have been moving around a lot more than usual: not at all Source: Developed by Drs. Winston Orr, Cindy Alcocer, Marc Mcnair and colleagues, with an educational raymon from [employer]. Social History Living Situation History Housing Other:: see note Tobacco History Smoking Status: Former smoker Domestic Abuse History Do You Feel Safe at Home: Yes Review of Systems Report any current symptoms Only answer those that you have currently: Past Medical History Past Medical History Have you ever been diagnosed with any of the following: Neurological Problems Seizures: No Cardiology Problems Congestive Heart Failure: No Respiratory Problems Chronic Obstructive Pulmonary Disease (COPD): No Stomache/Intestinal Problems Hiatal Hernia: Yes Genital/Urinary Problems Renal Disease: No Endocrine Problems Diabetes Mellitus Type 1: No Diabetes Mellitus Type 2: No Other Problems Blood Transfusions: No Anesthesia Reactions: No History of Present Illness HPI Narrative Patient is a 55-year-old male with past medical history of paroxysmal afib on Eliquis, HFrEF (30-35%), and hypertension who has been established for primary care at the [facility] clinic since 02/13/23. 11/05/2034: Presented to [facility] for acute RT sided nose bleeds. Started experiencing recurrent epistaxis over the last week. He is on Eliquis 5mg BID as per Cardiology recommendations. He is advised to reduce Eliquis to 2.5 BID for now and follow up with Cardiology. Patient has otherwise been in good health. He will benefit from holding Eliquis for a few days in the setting of acute bleed to allow clot stabilization. Will follow up Cardiology recommendations re: AC. Follow up in December 2024. Advised to keep tampons as home to achieve hemostasis and go to the ER if worsening bleeding. 05/04/2025: Seen at [facility] after appintment with Cardio. Patient continues to have high BP 150/90s, BMI 35 and last A1c 6.8% in August 2024. Labs were ordered on last visit in October 2024, however no slips were handed to the patient. Will re-order CBC, CMP, Lipid Panel, A1c and TSH, free T4 - follow up phone appointment in 2 weeks with providers at [facility]. Will add Mounjaro starting at 0.25 x4 weeks and 0.5 xnext 4 weeks, anticipate improvement in Bp and A1c with GLP1s. Also adding spironolactone 25mg qD for GDMT optimization. Patient instructed to keep BP log to further evaluate. In-person appt in 2 months. 05/18/2025: Patient has Televisit today for follow up of labs done at [facility] on 05/09/2025. CBC was normal. CMP showed baseline kidney functioning and normal electrolytes, however glucose is 297 and A1c is 13.0, markedly increased from 6.8 in 08/2024. Patient admits that he has not been controlling his sugar intake and tends to enjoy baking a lot including sweets. Lipid panel showed TG 80, TC 136, LDL 86, HDL 34, which are similar values to 08/2024. TSH and free T4 are normal. Patient will be started on metformin 500 mg BID and Jardiance 25 mg qday. In addition, will continue to uptitrate his Mounjaro in 4-week intervals, currently he is still on week 3 of the starting dose 2.5 mg, which will go up to 5 mg, prescribed 7.5 mg to follow that. Instructed patient to make appointment for in person follow up in 2 months. Patient otherwise is doing well and denies any shortness of breath or chest pain, has been actively following up with Cardiology Dr. Cramer. Reports compliance with all active medications. Objective/Exam Narrative Physical exam: Physical Exam General: Limited due to telephone encounter. Conversational, pleasant, and agreeable. Assessment & Plan Diagnosis / Problem List (1) Diabetes mellitus: Status: Chronic Qualifiers: Diabetes mellitus complication status: with hyperglycemia Diabetes mellitus penitentiary insulin use: without terminal operations supervisor use Diabetes mellitus type: type 2 Qualified Code(s): E11.65 - Type 2 diabetes mellitus with hyperglycemia Assessment & Plan: Patient has a strong family history of diabetes, however has not had family members who needed insulin. Patient reports he has not used insulin before. A1c 08/2024 6.8 A1c 05/2025 13.0 Plan: -Patient educated on aggressive control of blood sugars with strong emphasis on diet change -Uptitrate Mounjaro ? Currently still at starting dose of 2.5 mg ? Will follow with 5 mg for 4 weeks ? Followed by 7.5 mg -Follow up in 2 months Will see if insurance approves now given the A1c: -Prescribed Jardiance 25 mg -Prescribed FreeStyle Rios 3 Sensor (2) Obesity (BMI 30-39.9): Status: Acute Assessment & Plan: BMI 35.6 Unable to lose weight with dietary changes and regular exercise Has HFrEF and A1c 13.0 Plan: -Continue uptitrating Mounjaro, currently at 2.5 mg dose (3) Afib: Status: Chronic Qualifiers: Atrial fibrillation type: paroxysmal Qualified Code(s): I48.0 - Paroxysmal atrial fibrillation Assessment & Plan: Well controlled, on Eliquis and Coreg Continues to f/u with Cardiology Plan: -Continue carvedilol 12.5 mg BID -Continue Eliquis 5 mg BID (4) HFrEF (heart failure with reduced ejection fraction): Status: Chronic Assessment & Plan: LVEF improved on GDMT with Sacub-Valsartan, Coreg and Afib control BP continues to remain high Follows with Dr. Cramer Plan: -Continue sacubitril-valsartan 49-51 mg BID -Continue spirinolactone 25 mg qD -Continue regular Cardiology follow up -Follow up in 2 months (5) HTN (hypertension): Status: Chronic Qualifiers: Hypertension type: primary hypertension Qualified Code(s): I10 - Essential (primary) hypertension Assessment & Plan: BP worsening from previously 120-130s -> 150/90s BMI 35.6 Plan: -Continue carvedilol 12.5 mg BID -Continue sacubitril-valsartan 49-51 mg BID -Continue spirinolactone 25 mg qD Plan Overall started 2 new medications, metformin and Jardiance, and prescribed FreeStyle Rios sensor. Instructed patient to follow up in person in 2 months. Since the A1c is 13.0 patient was vigorously instructed to cut down his dietary sugars and carbs, if cannot reduce A1c then he may have to start insulin for the first time. 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
== END 2025-05-18 14:40 | disposition home or self-care (01) ==
LOC: HODAHC 13:47
PROVIDERS: Supervising Provider Student in an Organized Health Care Education/Training Program; Visit Provider Student in an Organized Health Care Education/Training Program
DX: E11.65 Type 2 diabetes mellitus with hyperglycemia (principal); Z83.3 Family history of diabetes mellitus; E66.9 Obesity, unspecified; Z68.35 Body mass index [BMI] 35.0-35.9, adult; I48.0 Paroxysmal atrial fibrillation; Z79.01 Long term (current) use of anticoagulants; I11.0 Hypertensive heart disease with heart failure; I50.20 Unspecified systolic (congestive) heart failure
CPT/HCPCS: 99212; G0463